=== PATIENT | female | born 1985 | race African-American/Black ===

== ENCOUNTER 2016-07-16 22:49 | Emergency (ER) | payer OTHER ==
[2016-07-16 23:06] VITALS: BP 117/73; PULSE 103; TEMP 99.3; BMI 32.2
[2016-07-16] MEDS ORDERED: SODIUM CHLORIDE 1,000 ML IV STA (23:39)
[2016-07-16] MEDS ORDERED: METOCLOPRAMIDE HCL INJECTION 10 MG/2 ML VIAL IVPB ONE (23:40)
--- NOTE | 2016-07-17 00:19 | PDOC ---
*Physical Exam - Vital Signs Last Vital Signs Temp Pulse Resp BP Pulse Ox 99.3 F 103 H 20 117/73 99 07/16/16 23:03 07/16/16 23:03 07/16/16 23:03 07/16/16 23:03 07/16/16 23:03 ED Treatment Course - LABORATORY CBC & Chemistry Diagram: 07/17/16 00:20 07/17/16 00:20 Medical Decision Making - Medical Decision Making 07/17/16 00:19 Pt seen by the Advanced Practice Provider under my direct supervision Ancillary studies reviewed I agree with plan as outlined by the Advanced Practice Provider TIFFANY Saenz *DC/Admit/Observation/Transfer Diagnosis at time of Disposition: Abdominal pain during - Discharge Dispostion Disposition: HOME Condition at time of disposition: Stable - Referrals Referrals: Deonna Sol MD [Primary Care Provider] - - Patient Instructions Printed Discharge Instructions: DI for Low Back Pain Additional Instructions: FOLLOW UP WITH YOUR FLOORHAND THIS WEEK FOR FURTHER EVALUATION. CALL TO SCHEDULE APPOINTMENT. RETURN IF SYMPTOMS WORSEN OR ANY CONCERNS FOR FURTHER EVALUATION. Print Language: SOMALI
[2016-07-17] MEDS ORDERED: METOCLOPRAMIDE HCL INJECTION 10 MG/2 ML VIAL ONE (00:22)
[2016-07-17 00:31] LABS: MEAN PLT VOLUME 8.6 fl (7.5-11.1)
[2016-07-17 00:34] LABS: BASOPHIL 0.5 % (0-2.0); EOSINOPHIL 0.6 % (0-4.5); MCH 24.5 pg (25.7-33.7); MCHC 32.6 g/dl (32.0-36.0); NEUTROPHILS 73.6 % (42.8-82.8); PLATELET COUNT 208 K/MM3 (134-434); RDW 15.5 % (11.6-15.6); WHITE BLOOD COUNT 6.1 K/mm3 (4.0-10.0)
[2016-07-17 00:56] LABS: ANION GAP 9 (8-16); BILIRUBIN,TOTAL 0.4 mg/dL (0.2-1.0); CALCIUM 8.6 mg/dL (8.5-10.1); CO2 26 mmol/L (21-32); CREATININE 0.6 mg/dL (0.55-1.02); GLUCOSE,RANDOM 81 mg/dL (74-106); MAGNESIUM 1.9 mg/dL (1.8-2.4); PHOSPHOROUS 3.6 mg/dL (2.5-4.9); SGOT/AST 12 U/L (15-37); SGPT/ALT 15 U/L (12-78)
--- NOTE | 2016-07-17 01:02 | PDOC ---
History of Present Illness - General Chief Complaint: Pain Stated Complaint: STOMACH PAIN/17 WKS Time Seen by Provider: 07/16/16 23:11 History Source: Patient Exam Limitations: No Limitations - History of Present Illness Travel History: No Initial Comments: 07/17/16 00:57 31yo Female patient 17 weeks presents to ED c/o back pain, pelvic pain , nausea and vomiting starting today at 1pm. Patient denies vaginal bleeding, dysuria, fever, hematuria, diff breathing, or any other complaints at this time. Patient expected due date: Dec 23, 2016. Lily Rosario MODERATE NEEDS TEACHER. Timing/Duration: reports: intermittent Quality: reports: moderate Abdominal Pain Onset Location: reports: suprapubic Pain Radiation: reports: no radiation Activities at Onset: reports: none, no specific activity Treatment Prior to Arrive: worse with: analgesics, antacids, cold pack, heat, laxative, enema, other Aggravating Factors: worse with: None, Defecation, Eating, Emotional upset, Exertion, [place], Movement, Voiding, Change in position Alleviating Factors: worse with: None, Belching, Shallow Breathing, Defecation, Eating, Holding Breath, Passing Gas, Change in Position, Rest, Voiding, Vomiting Past History - Travel Traveled outside of the country in the last 30 days: No Close contact w/someone who was outside of country & ill: No - Past Medical History Allergies/Adverse Reactions: Allergies Allergy/AdvReac Type Severity Reaction Status Date / Time levofloxacin Allergy Severe Verified 07/16/16 23:03 pineapple Allergy Severe Hives Verified 07/16/16 23:03 shellfish derived Allergy Severe Hives Verified 07/16/16 23:03 Home Medications: Ambulatory Orders Ferrous Gluconate [Iron] 256 mg PO BID 05/21/14 Vit/Iron Fumarate/FA [ Tablet] 1 each PO DAILY 05/21/14 Anemia: Yes Asthma: Yes Cancer: No Cardiac Disorders: No Diabetes: No HTN: No Seizures: No Thyroid Disease: No - Reproductive History Is Patient Now?: Yes (17 wks) - Psycho/Social/Smoking Cessation Hx Suicidal Ideation: No Smoking History: Current some day smoker Have you smoked in the past 12 months: Yes Number of Cigarettes Smoked Daily: 4 Information on smoking cessation initiated: No Hx Alcohol Use: No Drug/Substance Use Hx: Yes (4 ciggs/day) Hx Substance Use Treatment: No Abd/GI Specific PMHX - Complaint Specific PMHX Colitis: No Diverticulitis: No Gall Bladder Disease: No GERD: No Hepatitis: No Irritable Bowel Synd (IBS): No Pancreatitis: No GI Ulcer Disease: No Review of Systems - Review of Systems Able to Perform ROS?: Yes Is the patient limited Lao proficient: No Constitutional: No: Chills, Fever Respiratory: No: Cough, Shortness of Breath, Stridor, Wheezing, Hemoptysis Cardiac (ROS): No: Chest Pain, Lightheadedness, Palpitations, Syncope, Chest Tightness ABD/GI: Yes: Nausea, Poor Fluid Intake, Vomiting, Abdominal cramping (Pelvic region.). No: Constipated, Diarrhea, Poor Appetite, Rectal Bleeding : No: Burning, Dysuria, Discharge, Frequency, Flank Pain, Hematuria, Incontinence, Pain, Urgency Musculoskeletal: Yes: Back Pain. No: Muscle Pain, Muscle Weakness, Neck Pain Integumentary: No: Bruising, Dryness, Erythema, Rash, Sweating Neurological: No: Headache, Numbness, Seizure, Tingling, Tremors, Weakness, Ataxia, Dizziness Psychiatric: No: Frequent Crying, Stressors All Other Systems: Reviewed and Negative *Physical Exam - Vital Signs Last Vital Signs Temp Pulse Resp BP Pulse Ox 99.3 F 103 H 20 117/73 99 07/16/16 23:03 07/16/16 23:03 07/16/16 23:03 07/16/16 23:03 07/16/16 23:03 - Physical Exam General Appearance: Yes: Nourished, Appropriately Dressed. No: Apparent Distress, Mild Distress, Moderate Distress, Severe Distress HEENT: positive: EOMI, VALARIE, Normal ENT Inspection, Normal Voice, Symmetrical, TMs Normal, Pharynx Normal Neck: positive: Trachea midline, Supple. negative: Decreased range of motion, Lymphadenopathy (R), Lymphadenopathy (L) Respiratory/Chest: positive: Lungs Clear, Normal Breath Sounds. negative: Respiratory Distress, Accessory Muscle Use, Labored Respiration, Rapid RR Cardiovascular: positive: Regular Rhythm, Regular Rate. negative: Edema, JVD, Murmur Gastrointestinal/Abdominal: positive: Normal Bowel Sounds, Tender, Soft, Tenderness (Lower abd, pelvic region.). negative: Distended, Guarding, Rebound Musculoskeletal: positive: Normal Inspection. negative: CVA Tenderness Extremity: positive: Normal Capillary Refill, Normal Inspection, Normal Range of Motion Integumentary: positive: Normal Color, Dry, Warm. negative: Pale, Cold, Clammy , Rash, Bruising Neurologic: positive: radio commentator II-XII NML intact, Fully Oriented, Alert, Normal Mood/ Affect, Normal Response, Motor Strength 08/13 ED Treatment Course - LABORATORY CBC & Chemistry Diagram: 07/17/16 00:20 07/17/16 00:20 - ADDITIONAL ORDERS Additional order review: 07/17/16 00:20 RBC 4.42 D MCV 75.0 L MCHC 32.6 RDW 15.5 MPV 8.6 Neutrophils % 73.6 D Lymphocytes % 18.4 D Monocytes % 6.9 Eosinophils % 0.6 Basophils % 0.5 - RADIOLOGY Radiology Studies Ordered: Category Date Time Status US(SINGLE) [US] Stat Ultrasound 07/17/16 00:20 Ordered - Medications Given in the ED: ED Medications Discontinued Medications Generic Name Dose Route Start Last Admin Trade Name Freq PRN Reason Stop Dose Admin Sodium Chloride 1,000 mls @ 1,000 mls/hr 07/16/16 23:39 07/17/16 00:32 Normal Saline - IV 07/17/16 00:38 1,000 mls/hr ASDIR STA Administration Metoclopramide HCl 10 mg 07/16/16 23:40 07/17/16 00:32 Reglan Injection - IVPB 07/16/16 23:41 10 mg ONCE ONE Administration *DC/Admit/Observation/Transfer Diagnosis at time of Disposition: Abdominal pain during Qualifiers: Trimester: second trimester Qualified Code(s): O26.892 - Other specified related conditions, second trimester; R10.9 - Unspecified abdominal pain - Discharge Dispostion Disposition: HOME Condition at time of disposition: Stable Admit: No - Patient Instructions Printed Discharge Instructions: DI for Low Back Pain Additional Instructions: FOLLOW UP WITH YOUR MODERATE NEEDS TEACHER THIS WEEK FOR FURTHER EVALUATION. CALL TO SCHEDULE APPOINTMENT. RETURN IF SYMPTOMS WORSEN OR ANY CONCERNS FOR FURTHER EVALUATION. Print Language: ICELANDIC
[2016-07-17 01:12] LABS: ALK PHOS 74 U/L (45-117)
[2016-07-17 02:29] LABS: URINE APPEARANCE CLEAR; URINE BILIRUBIN NEGATIVE (NEGATIVE); URINE BLOOD NEGATIVE (NEGATIVE); URINE COLOR DKYELLOW; URINE GLUCOSE (UA) NEGATIVE (NEGATIVE); URINE KETONE 1+ (NEGATIVE); URINE LEUK ESTERASE NEGATIVE (NEGATIVE); URINE NITRITE NEGATIVE (NEGATIVE); URINE PROTEIN 1+ (NEGATIVE); URINE UROBILINOGEN 2.0 E.U/dl E.U./dl (0.2-1.0)
[2016-07-17 02:43] LABS: URINE BACTERIA RARE /hpf (NONE SEEN); URINE HYALINE CAST 7 /lpf; URINE MUCUS RARE; URINE RBC 1 /hpf (0-3); URINE WBC 1 /hpf (3-5)
== END 2016-07-17 03:03 | disposition home or self-care (01) ==
LOC: JER 22:49
PROC: 3E033GC Introduction of Other Therapeutic Substance into Peripheral Vein, Percutaneous Approach (ICD-10-PCS; principal; 2016-07-16)
DX: O26.892 Other specified pregnancy related conditions, second trimester (principal); R10.9 Unspecified abdominal pain; Z3A.17 17 weeks gestation of pregnancy
CPT/HCPCS: 36415; 76801-TC; 80053; 81003; 81015; 83735; 84100; 84702; 85025; 87086; 96374; 99283-25

== ENCOUNTER 2016-12-16 14:28 | Inpatient (IN) | payer OTHER ==
[2016-12-16 16:18] VITALS: BMI 36.1
[2016-12-16] MEDS: ELECTROLYTE-148 SOLN 1,000 ML IV SCH ×2 (16:30→17:25)
[2016-12-16] MEDS ORDERED: CITRIC ACID/SODIUM CITRATE 30 ML UNIT-DOSE CUP PO ONE (16:48)
--- NOTE | 2016-12-16 16:56 | HP ---
Past Medical History - Primary Care Physician PCP:: Inocente Baxter - Admission Chief Complaint: 39 weeks, previous c/s , request of repeat c/s History of Present Illness: 31 yo f with 2 previous c/s requesting repeat c/s ,rba discussed, cx closed vx -3 mi, fhr cat 1 History Source: Patient Limitations to Obtaining History: No Limitations - Past Medical History Pulmonary: Yes: Asthma ...: 3 ...Para: 2 ...Term: 2 ...LMP: 03/18/16 ... Weeks Gestation by Dates: 39 ...EDC by Dates: 12/23/16 ...EDC by Sono: 12/23/16 Additional OB History: 2 previous c/s Psych: Yes: Anxiety, Bipolar - Past Surgical History Past Surgical History: Yes: Hx Myomectomy: No Hx Transabdominal Cerclage: No - Smoking History Smoking history: Never smoked Have you smoked in the past 12 months: No Aproximately how many cigarettes per day: 4 - Alcohol/Substance Use Hx Alcohol Use: No History of Substance Use: reports: None - Social History History of Recent Travel: No Home Medications - Allergies Allergies/Adverse Reactions: Allergies Allergy/AdvReac Type Severity Reaction Status Date / Time levofloxacin Allergy Severe Hives Verified 11/20/16 16:29 pineapple Allergy Severe Itching Verified 11/20/16 16:29 shellfish derived Allergy Severe Swelling Verified 11/20/16 16:29 - Home Medications Home Medications: Ambulatory Orders Ferrous Gluconate [Iron] 256 mg PO BID 05/21/14 Vit/Iron Fumarate/FA [ Tablet] 1 each PO DAILY 05/21/14 Review of Systems - Review of Systems Constitutional: reports: No Symptoms Eyes: reports: No Symptoms HENT: reports: No Symptoms Neck: reports: No Symptoms Cardiovascular: reports: No Symptoms Respiratory: reports: No Symptoms Gastrointestinal: reports: No Symptoms Genitourinary: reports: No Symptoms Breasts: reports: No Symptoms Reported Musculoskeletal: reports: No Symptoms Integumentary: reports: No Symptoms Neurological: reports: No Symptoms Endocrine: reports: No Symptoms Psychiatric: reports: No Symptoms Physical Exam - Maternity Vital Signs: Vital Signs Temperature 98.2 F 12/16/16 15:59 Pulse Rate 82 12/16/16 15:59 Respiratory Rate 18 12/16/16 15:59 Blood Pressure 127/75 12/16/16 15:59 O2 Sat by Pulse Oximetry (%) Constitutional: Yes: Well Nourished, No Distress, Calm Eyes: Yes: WNL, Conjunctiva Clear, EOM Intact HENT: Yes: WNL, Atraumatic, Normocephalic Neck: Yes: WNL, Supple, Trachea Midline Cardiovascular: Yes: WNL, Regular Rate and Rhythm Breast(s): Yes: WNL - Abdominal Exam/OB Fundal Height: 40 Number of Fetuses: Single Presentation: Vertex Contractions: No Intensity: Unaware Monitor Mode: External Heart Rate Location: [facility] Category: I Accelerations: Uniform Decelerations: None - Vaginal Exam/OB Vaginal Bleediing: No Speculum Exam: No Dilatation (cm): 0 Effacement (%): o Amniotic Membrane Status: Intact Presentation: Vertex/Position Station: -3 - Physical Exam Musculoskeletal: Yes: Back Pain Edema: Yes Edema: LLE: Trace, RLE: Trace Deep Tendon Reflex Grade: Normal +2 Psychiatric: Yes: WNL Hemorrhage Risk Assessment - Risk Factors Medium Risk Factors: Yes: Prior , uterine surgery,or multiple laparotomies Risk Score: 1 Risk Level: Medium Risk Problem List - Problems (1) with 39 completed weeks gestation Code(s): Z3A.39 - 39 WEEKS GESTATION OF (2) Previous section complicating Code(s): O34.219 - MATERNAL CARE FOR UNSP TYPE SCAR FROM PREVIOUS DEL Assessment/Plan for repeat c/s , rba discussed
[2016-12-16] MEDS ORDERED: ONDANSETRON 4 MG/2 ML VIAL IVPB PRN (18:38)
[2016-12-16] MEDS ORDERED: WITCH HAZEL 50% (TUCKS) 40 PAD/JAR PAD TP PRN (19:10)
[2016-12-16] MEDS ORDERED: diphenhydrAMINE HCL 25 MG CAPSULE (FP) PO PRN (19:10)
[2016-12-16] MEDS ORDERED: oxyCODONE HCL 5 MG TABLET PO PRN (19:10)
[2016-12-16] MEDS ORDERED: BENZOCAINE 20% 57 GM BOTTLE TP PRN (19:10)
[2016-12-16] MEDS ORDERED: BENZOCAINE 28 GM HEMORRHOIDAL OINTMENT PR PRN (19:10)
[2016-12-16] MEDS ORDERED: METHYLERGONOVINE MALEATE 0.2 MG/1 ML AMP IM PRN (19:10)
[2016-12-16] MEDS ORDERED: OXYTOCIN 20 UNITS in 0.9% NS 1,000 ML IV SCH (19:15)
[2016-12-16] MEDS: IBUPROFEN 800 MG/8 ML IJ IVPB PRN (20:30)
[2016-12-17] MEDS: CEFAZOLIN 1 GM/D5W 50 ML IVPB SCH ×2 (01:24→10:57)
[2016-12-17] MEDS: IBUPROFEN 800 MG/8 ML IJ IVPB PRN (06:36)
[2016-12-17 07:48] LABS: BASOPHIL 0.6 % (0-2.0); EOSINOPHIL 0.6 % (0-4.5); MCH 23.8 pg (25.7-33.7); MCHC 31.9 g/dl (32.0-36.0); MEAN CELL VOLUME 74.8 fl (80-96); MEAN PLT VOLUME 9.5 fl (7.5-11.1); NEUTROPHILS 76.8 % (42.8-82.8); PLATELET COUNT 172 K/MM3 (134-434); RDW 15.1 % (11.6-15.6); WHITE BLOOD COUNT 9.1 K/mm3 (4.0-10.0)
--- NOTE | 2016-12-17 08:39 | OP ---
DATE OF OPERATION: 12/16/2016 PREOPERATIVE DIAGNOSIS: , term; previous section, request of repeat section. POSTOPERATIVE DIAGNOSIS: , term; previous section, request of repeat section. PROCEDURE: Repeat low-segment transverse section. SURGEON: Inocente Baxter MD EXCHANGE OPERATOR: JUSTIN Esposito ANESTHESIA: Spinal. ANESTHESIOLOGIST: Kiran Oconnor DO ESTIMATED BLOOD LOSS: 500 mL DESCRIPTION OF OPERATION: Patient was taken to the operating room. Under adequate spinal anesthesia, abdomen and perineum were prepped and draped. Pfannenstiel abdominal skin incision was made. Abdominal wall was cut layer by layer until peritoneum was exposed and incised. Upon entering the abdominal cavity, lower uterine segment was identified and uterovesical fold of peritoneum established. Bladder was pushed down. A low transverse uterine incision was made. Incision extended laterally. Amniotic sac was entered; clear fluid. Head delivered. Nasopharynx was suctioned. A live baby was delivered without any difficulty. Placenta was delivered manually. Uterine cavity was cleaned of all remaining tissue. Uterine incision was closed in 2 layers, first layer with 0 Biosyn continuous suture, the second layer with 0 Biosyn imbricating the first layer. Bladder flap was closed with 0 Biosyn continuous suture. Both tubes and ovaries were checked, were normal. No active bleeding was seen. All the lap pads, sponge, and instrument counts were correct. Then, peritoneum was closed with 0 Biosyn continuous suture. Muscles were brought together with interrupted suture of 0 Biosyn. Fascia was closed with 0 Biosyn continuous suture, subcutaneous fat with interrupted suture of 0 Biosyn, and the skin was closed with katina. Patient tolerated the procedure well, left the OR in good condition. Prachi [id number]
--- NOTE | 2016-12-17 09:17 | PN ---
Progress Note (short form) - Note Progress Note: Post op day#1.S/P C section under spinal anesthesia with duramorph uneventful.Patient stable and c/o pain score of 3-4/10 for which she is on medication.No any anesthesia related problem.Patient DC from the anesthesia care.
[2016-12-17] MEDS: ENOXAPARIN NA (PORCINE) 40 MG/0.4 ML DISP.SYRIN SQ SCH (09:33)
[2016-12-17] MEDS ORDERED: ACETAMINOPHEN 325 MG TABLET (FP) ONE (13:43)
[2016-12-17] MEDS: SIMETHICONE 80 MG TAB.CHEW (FP) PO PRN ×2 (13:51→19:22)
[2016-12-17] MEDS: IBUPROFEN 600 MG TABLET (FP) PO PRN (13:51)
[2016-12-17] MEDS: ACETAMINOPHEN 325 MG TABLET (FP) PO PRN ×2 (13:52→19:22)
--- NOTE | 2016-12-17 14:47 | PN ---
Progress Note (short form) - Note Progress Note: pod 1 doing well, no c/o CBC, BMP 12/17/16 07:24 Last Vital Signs Temp Pulse Resp BP Pulse Ox 98.7 F 84 20 121/76 99 12/17/16 14:00 12/17/16 14:00 12/17/16 14:00 12/17/16 14:00 12/16/16 19:45 abdomen soft, no distension, no cva incision dry, clean lochi mild no calf tenderness plan ambulate , advance diet Problem List - Problems (1) with 39 completed weeks gestation Code(s): Z3A.39 - 39 WEEKS GESTATION OF (2) Previous section complicating Code(s): O34.219 - MATERNAL CARE FOR UNSP TYPE SCAR FROM PREVIOUS DEL
[2016-12-17] MEDS: DEXTROSE 5%-LACTATED RINGERS 1,000 ML IV SCH (17:06)
[2016-12-17] MEDS ORDERED: BISACODYL 10 MG SUPP.RECT RC PRN (19:10)
[2016-12-17] MEDS: oxyCODONE HCL 5 MG TABLET PO PRN (19:23)
[2016-12-18] MEDS: SIMETHICONE 80 MG TAB.CHEW (FP) PO PRN ×4 (01:04→17:26)
[2016-12-18] MEDS: ACETAMINOPHEN 325 MG TABLET (FP) PO PRN ×4 (01:04→17:26)
[2016-12-18] MEDS: oxyCODONE HCL 5 MG TABLET PO PRN (01:06)
[2016-12-18] MEDS: IBUPROFEN 600 MG TABLET (FP) PO PRN ×4 (01:08→17:27)
[2016-12-18] MEDS: DEXTROSE 5%-LACTATED RINGERS 1,000 ML IV SCH (10:38)
[2016-12-18] MEDS: ENOXAPARIN NA (PORCINE) 40 MG/0.4 ML DISP.SYRIN SQ SCH (10:38)
--- NOTE | 2016-12-18 11:26 | PN ---
Post Progress Note - Subjective Subjective: no comlpain pain scale 3-4/10 Post Day: 2 Type of Delivery: Repeat C/S Vital Signs: Vital Signs Temperature 98.5 F 12/18/16 10:00 Pulse Rate 72 12/18/16 10:00 Respiratory Rate 20 12/18/16 10:00 Blood Pressure 120/75 12/18/16 10:00 O2 Sat by Pulse Oximetry (%) 99 12/16/16 19:45 Breast Exam: Yes: Soft, Other (BF ). No: Engorged Uterus: Yes: Fundus Firm, Fundus below umbilicus, Non-tender Incision: Yes: Dressing dry and intact (to be changed ). No: Redness, Oozing Abdomen/GI: Yes: Abdomen soft, Passing flatus. No: Abdominal Distention Lochia, amount: Moderate Extremities: Yes: Calves non-tender Perineum: Yes: Intact Activity: Ambulating - Labs Labs: CBC WBC 9.1 K/mm3 (4.0-10.0) 12/17/16 07:24 RBC 4.20 M/mm3 (3.60-5.2) 12/17/16 07:24 Hgb 10.0 GM/dL (10.7-15.3) L 12/17/16 07:24 Hct 31.4 % (32.4-45.2) L 12/17/16 07:24 MCV 74.8 fl (80-96) L 12/17/16 07:24 MCH 23.8 pg (25.7-33.7) L 12/17/16 07:24 MCHC 31.9 g/dl (32.0-36.0) L 12/17/16 07:24 RDW 15.1 % (11.6-15.6) 12/17/16 07:24 Plt Count 172 K/MM3 (134-434) 12/17/16 07:24 MPV 9.5 fl (7.5-11.1) 12/17/16 07:24 Neutrophils % 76.8 % (42.8-82.8) 12/17/16 07:24 Lymphocytes % 14.6 % (8-40) D 12/17/16 07:24 Monocytes % 7.4 % (3.8-10.2) 09/08/17 07:24 Eosinophils % 0.6 % (0-4.5) 12/17/16 07:24 Basophils % 0.6 % (0-2.0) 12/17/16 07:24 Assessment/Plan stable plan ct po care requests for discharge tomorrow.
--- NOTE | 2016-12-18 16:00 | CON.PSY ---
Psychiatry Consult Chief Complaint: i am ok, I need to go anmd see my psychiatrist at [facility]. - Previous Psychiatric Treatment Outpatient: Less than 6 mos ago Inpatient: None - Reason for Previous Treatment Reason for Previous Treatment: Major Depression - Current Medications Current Medications: Active Medications Acetaminophen (Tylenol -) 650 mg PO Q4H PRN PRN Reason: PAIN Last Admin: 12/18/16 13:14 Dose: 650 mg Benzocaine (Americaine Ointment -) 1 applic NV PRN PRN PRN Reason: PAIN Benzocaine (Americaine 20% [place] -) 1 spray TP PRN PRN PRN Reason: PAIN Bisacodyl (Dulcolax Suppository -) 10 mg RC PRN PRN PRN Reason: CONSTIPATION Diphenhydramine HCl (Benadryl Injection -) 25 mg IVPUSH Q4H PRN PRN Reason: Pruritis Last Admin: 12/16/16 20:00 Dose: 25 mg Diphenhydramine HCl (Benadryl -) 25 mg PO Q8H PRN PRN Reason: FOR ITCHING Enoxaparin Sodium (Lovenox -) 40 mg SQ DAILY [facility] Last Admin: 12/18/16 10:38 Dose: 40 mg Dextrose/Lactated Ringer's (D5-Lr -) 1,000 mls @ 125 mls/hr IV ASDIR [facility] Last Admin: 12/18/16 10:38 Dose: Not Given Ibuprofen (Motrin -) 600 mg PO Q4H PRN PRN Reason: PAIN Last Admin: 12/18/16 13:13 Dose: 600 mg Methylergonovine Maleate (Methergine Injection -) 0.2 mg IM Q4H PRN PRN Reason: EXCESSIVE BLEEDING Oxycodone HCl (Roxicodone -) 5 mg PO Q4H PRN PRN Reason: PAIN LEVEL 1-5 Last Admin: 12/18/16 01:06 Dose: 5 mg Oxycodone HCl (Roxicodone -) 10 mg PO Q4H PRN PRN Reason: PAIN LEVEL 6-10 Senna/Docusate Sodium (Pericolace -) 1 tablet PO HS PRN PRN Reason: CONSTIPATION Simethicone (Mylicon -) 80 mg PO Q4H PRN PRN Reason: GAS Last Admin: 12/18/16 13:13 Dose: 80 mg [place]/Glycerin (Tucks Pads -) 1 pad TP PRN PRN PRN Reason: PAIN - Allergies Allergies: Allergies Allergy/AdvReac Type Severity Reaction Status Date / Time levofloxacin Allergy Severe Hives Verified 11/20/16 16:29 pineapple Allergy Severe Itching Verified 11/20/16 16:29 shellfish derived Allergy Severe Swelling Verified 11/20/16 16:29 - Current Living Status Usual Living Arrangement: With Significant Other - Current Mental Status Evaluation Appearance: Well Groomed Attitude: Cooperative - Affect Affect: Full Range Appropriateness: Appropriate to Content - Mood Mood: Euthymic - Speech/Language Expressive: Coherent - Psychomotor Activity Psychomotor Activity: Normal - Thought Process Thought Process: Intact - Thought Content Hallucinations: Absent Delusions: Absent - Self Perception Self Perception: No Impairment - Cognition Attention: Alert Orientation: Time Memory, Immediate Recall: Intact Memory, Short Term: 3/3 Memory, Remote with Promptin/3 - Concentration Serial Sevens Intact: Yes Simple Calculations Intact: Yes - Abstraction Proverb Interpretation: Intact Judgement: Intact - Insight Insight: Intact - Impulse Control Impulse Control: Good Control - Suicidal Ideation Suicidal Ideation: No - Homicidal Ideation Homicidal Ideation: No Assessment/Plan 1) patient is stable to be Discharged Home. 2) follow up at [facility].
[2016-12-18] MEDS ORDERED: SENNOSIDES/DOCUSATE COMBO (SENNA PLUS) TABLET (UD) PO PRN (22:00)
[2016-12-19] MEDS: ACETAMINOPHEN 325 MG TABLET (FP) PO PRN ×2 (01:27→07:50)
[2016-12-19] MEDS: IBUPROFEN 600 MG TABLET (FP) PO PRN ×2 (01:27→07:49)
[2016-12-19] MEDS: SIMETHICONE 80 MG TAB.CHEW (FP) PO PRN ×2 (01:28→07:50)
[2016-12-19 08:34] LABS: BASOPHIL 0.7 % (0-2.0); EOSINOPHIL 1.6 % (0-4.5); MCH 24.4 pg (25.7-33.7); MCHC 32.5 g/dl (32.0-36.0); MEAN PLT VOLUME 8.7 fl (7.5-11.1); NEUTROPHILS 67.2 % (42.8-82.8); PLATELET COUNT 200 K/MM3 (134-434); RDW 15.3 % (11.6-15.6); WHITE BLOOD COUNT 7.9 K/mm3 (4.0-10.0)
--- NOTE | 2016-12-19 10:14 | PN ---
Post Progress Note - Subjective Subjective: no c/o painscale 06/18 pt requests discharge today Post Day: 3 Type of Delivery: Repeat C/S Vital Signs: Vital Signs Temperature 98.5 F 12/18/16 21:08 Pulse Rate 90 12/18/16 21:08 Respiratory Rate 20 12/18/16 21:08 Blood Pressure 111/74 12/18/16 21:08 O2 Sat by Pulse Oximetry (%) 99 12/16/16 19:45 Breast Exam: Yes: Soft, Other (BF ). No: Engorged Uterus: Yes: Fundus Firm, Fundus below umbilicus, Non-tender Incision: Yes: [place] intact. No: Redness, Oozing Abdomen/GI: Yes: Abdomen soft, Passing flatus, Tolerating PO (diet ). No: Abdominal Distention, Tender Lochia: Yes: Rubra Lochia, amount: Moderate Extremities: Yes: Calves non-tender Perineum: Yes: Intact Activity: Ambulating - Labs Labs: CBC WBC 7.9 K/mm3 (4.0-10.0) 12/19/16 07:35 RBC 3.98 M/mm3 (3.60-5.2) 12/19/16 07:35 Hgb 9.7 GM/dL (10.7-15.3) L 12/19/16 07:35 Hct 29.8 % (32.4-45.2) L 12/19/16 07:35 MCV 75.0 fl (80-96) L 12/19/16 07:35 MCH 24.4 pg (25.7-33.7) L 12/19/16 07:35 MCHC 32.5 g/dl (32.0-36.0) 12/19/16 07:35 RDW 15.3 % (11.6-15.6) 12/19/16 07:35 Plt Count 200 K/MM3 (134-434) 12/19/16 07:35 MPV 8.7 fl (7.5-11.1) 12/19/16 07:35 Neutrophils % 67.2 % (42.8-82.8) 12/19/16 07:35 Lymphocytes % 23.4 % (8-40) D 12/19/16 07:35 Monocytes % 7.1 % (3.8-10.2) 12/19/16 07:35 Eosinophils % 1.6 % (0-4.5) D 12/19/16 07:35 Basophils % 0.7 % (0-2.0) 12/19/16 07:35 Assessment/Plan stable. psyche consult noted .No need of meds . she will f/u with her psych clinic at [facility]. anemia counselled she will rtc for katina removal. discharge today
[2016-12-19 10:24] VITALS: BP 127/82; PULSE 79; TEMP 97.9
[2016-12-19] MEDS: DEXTROSE 5%-LACTATED RINGERS 1,000 ML IV SCH (10:46)
[2016-12-19] MEDS: ENOXAPARIN NA (PORCINE) 40 MG/0.4 ML DISP.SYRIN SQ SCH (10:46)
--- NOTE | 2016-12-19 14:11 | DS ---
Physical Exam-MAPPER Vital Signs: Vital Signs Temperature 97.9 F 12/19/16 10:00 Pulse Rate 79 12/19/16 10:00 Respiratory Rate 20 12/19/16 10:00 Blood Pressure 127/82 12/19/16 10:00 O2 Sat by Pulse Oximetry (%) 99 12/16/16 19:45 Constitutional: Yes: Well Nourished, No Distress, Calm Eyes: Yes: WNL, Conjunctiva Clear, EOM Intact HENT: Yes: WNL, Atraumatic, Normocephalic Neck: Yes: WNL, Supple, Trachea Midline Cardiovascular: Yes: WNL, Regular Rate and Rhythm Respiratory: Yes: WNL, Regular, CTA Bilaterally Gastrointestinal: Yes: WNL ...Rectal Exam: Yes: WNL Renal/: Yes: WNL ....Post : Yes: Uterus firm, Uterus non-tender, Slight lochia rubra Breast(s): Yes: WNL Musculoskeletal: Yes: WNL Extremities: Yes: WNL Integumentary: Yes: WNL Neurological: Yes: WNL, Alert, Oriented ...Motor Strength: WNL Psychiatric: Yes: WNL, Alert, Oriented Labs: CBC, BMP 12/19/16 07:35 Delivery - Delivery Section: Low Flap Transverse (no complication) Type of Anesthesia: Spinal Episiotomy/Laceration: None EBL (cc): 500 Delivery, Single - Stages of Labor Date of Delivery: 12/16/16 Time of Delivery: 17:53 Time Placenta Delivered: 17:54 Placenta: Yes: Expressed - Condition of Regulation Supervisor/Disability Services Coordinator Present: Yes Name: Roxann Plata Infant Gender: Male Weight: 6 lb 9 oz Total Hours ROM (Hrs/Mins): 0/01 - 1 Minute Total Score: 9 5 Minutes Total Score: 9 - [place] Feeding Plan Initial Plan: Elected not to breastfeed exclusively throughout hospitalization Discharge Summary Reason For Visit: SECTION Procedures: Principal: repeat LST c/s Condition: Stable - Instructions Diet, Activity, Other Instructions: Discharge Instructions * Out of Bed * * Regular Diet * Ifeoma Care * Avoid sex for 6 weeks * RTC week, to see DR Baxter for katina removal If you experience excessive bleeding or fever over 101 degrees, call doctor, the clinic or go to the Emergency Room. Referrals: Inocente Baxter MD [Staff Physician] - Disposition: HOME - Home Medications Comprehensive Discharge Medication List: Ambulatory Orders Vit/Iron Fumarate/FA [ Tablet] 1 each PO DAILY 05/21/14 Acetaminophen [Tylenol .Regular Strength -] 650 mg PO Q4H PRN #0 tablet Ferrous Gluconate [Iron] 256 mg PO BID #0 tab 12/18/16 Ibuprofen [Motrin -] 600 mg PO Q4H PRN #30 tablet 12/18/16
--- NOTE | 2016-12-21 14:22 | PATH ---
Surgical Pathology Report Patient Name: JEFF ROSARIO Med. Rec. #: [id number] /Age/Gender: 1985 (Age: 31) / F Account: [id number] Location: [facility] OBS/WELDER FITTER ARC Taken: 12/17/2016 Received: 12/17/2016 Reported: 12/21/2016 Physicians: Inocente Baxter M.D. Specimen(s) Received PLACENTA Clinical History , history of c/section x2; h/o anxiety and bipolar disorder Repeat c/section Final Diagnosis PLACENTA, DELIVERY: FOCALLY DISRUPTED THIRD TRIMESTER PLACENTA WITH MILD INCREASE IN PREVILLOUS, PERIVILLOUS, AND PRECHORIONIC FIBRIN DEPOSITION, THREE VESSEL UMBILICAL CORD, AND PLACENTAL MEMBRANES WITH AMNION HYPERPLASIA. Electronically Signed Ace Og M.D. Gross Description The specimen is received fresh, labeled "placenta" and is a 402 gram, 20.0 x 14.5 x 2.5 cm placenta with attached membranes and umbilical cord. The attached membranes are guthrie, translucent with focal opacities and insert marginally. The umbilical cord measures 26 cm in length and averages 0.9 cm in diameter. The cord inserts eccentrically, 1 cm to the nearest margin. No true knots or strictures are identified. Cut surface of the umbilical cord reveals 3 vessels. The surface is christiansen-blue with fibrin deposition and appropriate caliber vessels. The maternal surface is red-brown with focal defects. Sectioning reveals red-brown, spongy parenchyma. No focal lesions are identified. Genetic Counsellor sections are submitted in three cassettes as follows: 1- membrane rolls and umbilical cord; 2-3- full thickness sections of placenta. 12/20/201612/20/2016
== END 2016-12-19 12:00 | disposition home or self-care (01) | DRG 540 ==
LOC: JLDR 14:28 → J3W 20:57
PROVIDERS: ADMIT Obstetrics & Gynecology; ATTEND Obstetrics & Gynecology
PROC: 10D00Z1 Extraction of Products of Conception, Low, Open Approach (ICD-10-PCS; principal; 2016-12-16)
DX: O34.211 Maternal care for low transverse scar from previous cesarean delivery (principal); N85.8 Other specified noninflammatory disorders of uterus; Z3A.39 39 weeks gestation of pregnancy; Z37.0 Single live birth
CPT/HCPCS: 36415; 85025; 88307-TC

== ENCOUNTER 2022-12-27 05:22 | Day surgery (SDC) | payer OTHER ==
[2022-12-27 11:40] VITALS: BMI 41.1
[2022-12-27] MEDS ORDERED: MIDAZOLAM HCL 2 MG/2 ML SINGLE DOSE VIAL ONE (12:01)
[2022-12-27 12:42] VITALS: TEMP 98
[2022-12-27 13:12] VITALS: BP 177/77; PULSE 68; RESP 16
== END 2022-12-27 13:30 | disposition home or self-care (01) ==
LOC: JASU-ENDO 05:22
PROVIDERS: ATTEND Internal Medicine Gastroenterology
PROC: 0DB78ZX Excision of Stomach, Pylorus, Via Natural or Artificial Opening Endoscopic, Diagnostic (ICD-10-PCS; 2022-12-27)
PROC: 0DB68ZX Excision of Stomach, Via Natural or Artificial Opening Endoscopic, Diagnostic (ICD-10-PCS; principal; 2022-12-27 11:45)
DX: K29.50 Unspecified chronic gastritis without bleeding (principal)
CPT/HCPCS: 81025; 88305-TC; 88342-TC

== ENCOUNTER 2023-02-10 05:05 | Day surgery (SDC) | payer OTHER ==
[2023-02-08 12:13] VITALS: BMI 35.2
[2023-02-10 11:02] VITALS: TEMP 98.6
[2023-02-10 11:30] VITALS: BP 110/60; PULSE 82; RESP 16
== END 2023-02-10 11:45 | disposition home or self-care (01) ==
LOC: JASU-ENDO 05:05
PROVIDERS: ATTEND Internal Medicine Gastroenterology
PROC: 0DJD8ZZ Inspection of Lower Intestinal Tract, Via Natural or Artificial Opening Endoscopic (ICD-10-PCS; principal; 2023-02-10 11:00)
DX: K64.8 Other hemorrhoids (principal); D64.9 Anemia, unspecified
CPT/HCPCS: 81025

== ENCOUNTER 2023-02-17 04:25 | Day surgery (SDC) | payer OTHER ==
[2023-02-15 16:39] VITALS: BMI 35.3
[2023-02-17] MEDS ORDERED: BUPIVACAINE HCL/PF 0.25% (2.5MG/ML) 10 ML VIAL ONE (14:05)
[2023-02-17] MEDS ORDERED: ROCURONIUM BROMIDE 50 MG/5 ML SYRINGE ONE (15:17)
[2023-02-17] MEDS ORDERED: SUGAMMADEX SODIUM 200 MG/2 ML VIAL ONE (15:17)
[2023-02-17] MEDS ORDERED: FENTANYL CITRATE/PF 50 MCG/ML VIAL ONE ×4 (15:17→17:33)
[2023-02-17] MEDS ORDERED: SUCCINYLCHOLINE CHLORIDE 200 MG/10 ML SYRINGE ONE (15:17)
[2023-02-17] MEDS ORDERED: MIDAZOLAM HCL 2 MG/2 ML SINGLE DOSE VIAL ONE (15:17)
[2023-02-17] MEDS ORDERED: ceFAZolin SODIUM 1 GM VIAL ONE (15:39)
[2023-02-17] MEDS ORDERED: DEXAMETHASONE SOD PHOSPHATE 4 MG/1 ML VIAL ONE (15:41)
[2023-02-17] MEDS ORDERED: ONDANSETRON 4 MG/2 ML VIAL ONE (15:41)
[2023-02-17] MEDS ORDERED: BUPIVACAINE HCL/PF 0.25% (2.5MG/ML) 10 ML VIAL IJ ONE (16:01)
[2023-02-17] MEDS ORDERED: ACETAMINOPHEN 1000 MG/100 ML BAG IVPB ONE (16:57)
[2023-02-17] MEDS ORDERED: ONDANSETRON 4 MG/2 ML VIAL IVPUSH PRN (16:57)
[2023-02-17] MEDS ORDERED: LACTATED RINGERS SOLUTION 1,000 ML IV SCH (17:00)
[2023-02-17] MEDS ORDERED: ACETAMINOPHEN INJECTION 100 ML IVPB ONE (17:13)
[2023-02-17 17:47] VITALS: RESP 16
[2023-02-17 18:32] VITALS: TEMP 98
[2023-02-17 19:11] VITALS: BP 114/64; PULSE 63
== END 2023-02-17 19:10 | disposition home or self-care (01) ==
LOC: JASU-SURG 04:25
PROVIDERS: ATTEND Surgery
PROC: 0FT44ZZ Resection of Gallbladder, Percutaneous Endoscopic Approach (ICD-10-PCS; principal; 2023-02-17 12:00)
DX: K80.10 Calculus of gallbladder with chronic cholecystitis without obstruction (principal)
CPT/HCPCS: 81025; 88304-TC; 94760